=== PATIENT | female | born 1985 | race Hispanic/Latino ===

== ENCOUNTER 2023-06-24 06:56 | Day surgery (SDC) | payer OTHER ==
[2023-06-24] MEDS ORDERED: CEFAZOLIN SODIUM 1 GM/VIAL ONE (07:25)
[2023-06-24] MEDS ORDERED: Ringers Lactate 1,000 ML IV ONE ×2 (07:25→12:13)
[2023-06-24 07:57] LABS: Absolute Lymphocytes (CBC) 1.4 K/uL (0.7-4.9); Hematocrit 43.7 % (36.0-45.0); Lymphocytes % 20.1 % (15.3-44.8); MCV 90.7 fL (80-100); MPV 7.3 fL (7.6-11.3); Platelets 266 thou/uL (152-406); RBC Red Blood Cell Count 4.82 M/uL (3.86-4.86)
[2023-06-24 08:24] LABS: Urine Specific Gravity/Preg 1.015 (1.005-1.030)
[2023-06-24] MEDS ORDERED: ONDANSETRON 4 MG/2 ML VIAL ONE ×2 (08:38→10:39)
[2023-06-24] MEDS ORDERED: propofoL 200 MG/20 ML VIAL IV ONE ×2 (08:39→10:39)
[2023-06-24] MEDS ORDERED: LIDOCAINE 2% MPF 5 ML VIAL ONE ×2 (08:39→10:39)
[2023-06-24] MEDS ORDERED: FENTANYL CITR 100 MCG/2 ML ONE ×2 (08:41→11:00)
[2023-06-24] MEDS ORDERED: MIDAZOLAM HCL 2 MG/2 ML INJ ONE ×2 (08:44→10:40)
[2023-06-24] MEDS ORDERED: ROCURONIUM 50 MG/5 ML VIAL IV ONE (10:39)
[2023-06-24] MEDS ORDERED: KETOROLAC 30 MG/ML INJ ONE (10:39)
[2023-06-24] MEDS ORDERED: dexAMETHasone 10 MG/ML VIAL ONE (10:39)
[2023-06-24] MEDS ORDERED: BUPIVACAINE 0.5% PF 10 ML VIAL ONE (11:46)
[2023-06-24] MEDS ORDERED: Mastisol Adhesive Liq ONE (11:55)
--- NOTE | 2023-06-24 12:03 | P.BOP ---
Preoperative diagnosis: recurrent tender umbilical hernia Postoperative diagnosis: same, intrabdominal adhesions Primary procedure: Laparoscopic repair of recurrent tender umbilical hernia with mesh Secondary procedure: Laparoscopic lysis of adhesions Estimated blood loss: <10cc Specimen: sac Findings: intrabdominal adhesion to umbilical Anesthesia: General Complications: None Drain(s): Other (medium ventralex) Transferred to: Recovery Room Condition: Good
[2023-06-24 14:19] VITALS: BP 95/69; TEMP 97.2; O2SAT 99
--- NOTE | 2023-06-24 16:31 | OP ---
Date of Procedure: 06/24/2023 Surgeon: Radhames Palomo MD Preoperative Diagnosis: Recurrent tender umbilical hernia. Postoperative Diagnoses: Recurrent tender umbilical hernia plus intraabdominal adhesions. Procedure: Laparoscopic repair of recurrent tender umbilical hernia with mesh and laparoscopic lysis of adhesions. Estimated Blood Loss: Less than 10 cc. Specimen: Hernia sac. Findings: Patient has multiple intraabdominal adhesions of the omentum to the anterior abdominal wal l in the periumbilical region. There are multiple adhesions bands to that region that were ligated t rudolph. Complications: None. Indication: This is a case of a 38-year-old patient with a periumbilical tenderness. She has umbili sheyla hernia repair before when she had her baby at least that is what she was told with no mesh. Now, the hernia comes back once again. It is bigger and tender. Patient wants that repaired. The benef its, alternatives, and risks of laparoscopic possible open repair of umbilical hernia with possible m esh were fully explained, which include, but not limited to, infection, bleeding, damage to adjacent structures, anesthesia complication, recurrence, NM, and even . She also understands this may n ot relieve any symptoms and she might need more than one surgical intervention. She understands that we are going to be using most likely mesh in that region depends on the findings. Pros and cons of mesh were discussed with the patient and she has signed a consent. We also identified opportunities to diminish the chance of recurrence like not doing heavy lifting and also not gaining weight and con trol constipation and minimize sneezing and coughing. She signed a consent. 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 She understood. Description Of Procedure: Patient was brought to the operating room, placed in supine position. Ane sthesia was done without complication. Abdominal area was prepped and draped in sterile fashion. Ma rcaine 0.5% was injected for local anesthetic. Sharp incision of the skin was done in the supraumbil ical region. Incision was carried down to fascia. We noticed a hernia sac present, removed the ziyad ia sac from umbilical skin. Between the fascial edges, we noticed the fascial edges to be scarring a nd it feels weak, so I believe she will benefit from a mesh. At that moment, I put Vicryl #1 inside the fascia. Sal trocar was carefully introduced. Pneumoperitoneum was obtained. I placed 5 mm t rocars in the inside of the abdomen. After that, we took a look at the area of the center. Once aga in, we noticed in this case some umbilical bands of scar tissue from omentum. Those bands if left ov er there may cause complications in the future. So with the help of Endo Sudheer connected to Bovie c auterizer, we proceeded to clean that area from adhesions. Those bands were removed. We made sure w e had good hemostasis. At that moment, we delineated once again the size of the hernia defects and w e picked a medium mesh, as the mesh that will cover that area and overlapped by 3 to 5 cm. At that m oment, I introduced the mesh through the trocar site. Trocar was removed. The mesh was lying flat a gainst the abdominal wall, secured in place with SorbaFix. The mesh straps were removed and then fur ther fixation circumferentially was done of the mesh with a SorbaFix fixation device. At that moment , we noticed the patient to be waterproof and airproof. We proceeded to carefully look at the area o f adhesions with no bleeding and the mesh looks anterior against the abdominal wall. At that moment, I proceeded under direct visualization deflated pneumoperitoneum, removed the 5 mm trocar. At that moment, we repaired the hernia fascia edges with the help of #1 Vicryl already tied. Subcutaneous ti ssue closed with 3-0 chromic and the skin in subcuticular fashion with 3-0 chromic and Steri-Strips o n top. Sponge counts and instrument counts were correct. Patient tolerated the procedure well. Patient was sent to Recovery in stable condition. GURJIT/CHANELLE Voice ID: [id number] Report ID: [id number]
--- NOTE | 2023-06-24 16:37 | DS ---
Date of Discharge: 06/24/2023 Diagnosis: Recurrent tender umbilical hernia and intraabdominal adhesions. Procedure: Laparoscopic repair of recurrent tender umbilical hernia with mesh, laparoscopic lysis of adhesions. Disposition: Home. Condition: Stable. Activity: As tolerated. No heavy lifting. Plan: Follow up in my office in 1 week. Call for appointment at [phone]. Keep area dry until she see us back again in the clinic and leave the dressings intact. GURJIT/CHANELLE Voice ID: [id number] Report ID: [id number]
== END 2023-06-24 14:00 | disposition home or self-care (01) ==
LOC: OR 06:56
PROVIDERS: ATTEND Surgery
PROC: 0WUF4JZ Supplement Abdominal Wall with Synthetic Substitute, Percutaneous Endoscopic Approach (ICD-10-PCS; principal; 2023-06-24 10:00)
DX: K42.9 Umbilical hernia without obstruction or gangrene (principal); K66.0 Peritoneal adhesions (postprocedural) (postinfection); Z82.49 Family history of ischemic heart disease and other diseases of the circulatory system; Z83.3 Family history of diabetes mellitus
CPT/HCPCS: 36415; 80048; 81025; 85025; 88302; J0690; J1100; J2001; J2250; J2405; J2704; J3010; J7120